=== PATIENT | female | born 1945 | race Caucasian/White ===

== ENCOUNTER 2016-07-03 12:01 | Emergency (ER) | payer MEDICARE, OTHER ==
--- NOTE | 2016-07-03 12:33 | ER Document Report ---
ED General - General Chief Complaint: General Weakness Stated Complaint: WEAKNESS Time Seen by Provider: 07/03/16 12:30 Mode of Arrival: Medic Information source: Patient Notes: This is a 70-year-old female with a history of syncope, back spasms and asthma who presents to the emergency room with weakness, back spasms and pain. Patient denies fever, chills, nausea vomiting. He shouldn't denies any photophobia. - HPI Onset: Just prior to arrival Onset/Duration: Sudden Quality of pain: Dull Severity: Moderate Pain Level: 2 Associated symptoms: denies: Chills, Fever, Nausea, Vomiting, Shortness of breath Exacerbated by: Denies Relieved by: Denies Similar symptoms previously: Yes Recently seen / treated by doctor: No - Related Data Allergies/Adverse Reactions: erythromycin base Allergy (Verified 07/03/16 12:34) Sulfa (Sulfonamide Antibiotics) Allergy (Verified 07/03/16 12:34) Past Medical History - General Information source: Patient - Social History Smoking Status: Never Smoker Cigarette use (# per day): No Chew tobacco use (# tins/day): No Frequency of alcohol use: None Drug Abuse: None Lives with: Family Family History: Reviewed & Not Pertinent Patient has suicidal ideation: No Patient has homicidal ideation: No - Past Medical History Cardiac Medical History: Reports: Other - Vasovagal syncope Pulmonary Medical History: Reports: Hx Asthma EENT Medical History: Reports: None Neurological Medical History: Reports: Other - Vasovagal syncope Endocrine Medical History: Reports: None Renal/ Medical History: Reports: None Malignancy Medical History: Reports: None GI Medical History: Reports: None Musculoskeltal Medical History: Reports None Skin Medical History: Reports None Psychiatric Medical History: Reports: Hx Anxiety Traumatic Medical History: Reports: None Infectious Medical History: Reports: None Past Surgical History: Reports: Other - Recent colonoscopy Review of Systems - Review of Systems Constitutional: denies: Chills, Fever EENT: No symptoms reported Cardiovascular: See HPI Respiratory: No symptoms reported Gastrointestinal: No symptoms reported Genitourinary: No symptoms reported Female Genitourinary: No symptoms reported Musculoskeletal: See HPI Skin: No symptoms reported Hematologic/Lymphatic: No symptoms reported Neurological/Psychological: Anxiety. denies: Confusion, Sensory change, Weakness, Gait changes, Loss of power, Paralysis, Seizure, Lost consciousness, Headaches, Speech impairment, Suicidal ideation, Tingling Physical Exam - Vital signs Vitals: Resp 16 07/03/16 12:05 Notes: Physical exam: GENERAL: 70-year-old female, alert and oriented 3, no acute distress HEAD: Atraumatic, normocephalic. EYES: Pupils equal round and reactive to light, extraocular movements intact, sclera anicteric, conjunctiva are normal. ENT: TMs normal, nares patent, oropharynx clear without exudates. Moist mucous membranes. NECK: Normal range of motion, supple without lymphadenopathy or JVD. LUNGS: Breath sounds clear to auscultation bilaterally and equal. No wheezes rales or rhonchi. HEART: Regular rate and rhythm without murmurs, rubs or gallops. ABDOMEN: Soft, normoactive bowel sounds. No tenderness to palpation. No guarding, no rebound. No masses appreciated. EXTREMITIES: Normal range of motion, no pitting or edema. No clubbing or cyanosis. NEUROLOGICAL: Patient denies headache. Cranial nerves II through XII grossly intact. Normal speech, moving all extremities, neck supple, no photophobia. PSYCH: Normal mood, normal affect. SKIN: Warm, Dry, normal turgor, no rashes or lesions noted. Course - Re-evaluation Re-evalutation: 07/03/16 16:19 Patient observed in the ER. IV fluids given. Patient tolerating by mouth. She feels good at this time. Her neck remained supple. She is without headache , photophobia or neck stiffness. She looks reasonably well. Her EKG and lab work looked good. She has had similar episodes to this in the past and has been diagnosed by 2 cardiologists with vasovagal syncope. The plan will be for follow-up as an outpatient. - Vital Signs Vital signs: Temp Pulse Resp BP Pulse Ox 98.7 F 18 138/59 H 100 07/03/16 12:51 07/03/16 14:01 07/03/16 14:01 07/03/16 14:01 - Laboratory Result Diagrams: 07/03/16 13:10 07/03/16 13:10 Laboratory results interpreted by me: 07/03/16 07/03/16 13:10 13:10 Seg Neutrophils % 84.9 H Lymphocytes % 8.4 L Glucose 114 H AST 48 H Creatine Kinase 251 H - EKG Interpretation by Me Rate: Normal Rhythm: NSR - EKG shows normal sinus rhythm with a ventricular rate of 64, no acute ST-T wave changes Discharge - Discharge Clinical Impression: near syncope Condition: Stable Disposition: HOME, SELF-CARE Additional Instructions: As we discussed, your EKG and labs look very good today. Your labs and neurologic exam do not suggest meningitis at all. I would rest, drink plenty of fluids. Continue current medicines. Follow-up with your doctor in the next few days: Bring a copy of today's EKG and labs with you when you go (I put a copy of his results in the discharge paperwork). Return to the emergency room for any chest pain or shortness of breath, fever or headache or any concerns he getting worse. Referrals: MEHRDAD MONDRAGON, [employer] [Primary Care Provider] - Follow up in 3-5 days
[2016-07-03 13:23] LABS: ABSOLUTE LYMPHOCYTES (AUTO) 0.6 10^3/uL (0.5-4.7); ABSOLUTE MONOCYTES (AUTO) 0.4 10^3/uL (0.1-1.4); ABSOLUTE NEUT (AUTO) 6.3 10^3/uL (1.7-8.2); BASOPHILS % (AUTO) 0.4 % (0-2); EOSINOPHILS % (AUTO) 0.2 % (0-6); HEMATOCRIT 39.4 % (36.0-47.0); HGB HCT DIFFERENCE -0.4; LYMPHOCYTES % (AUTO) 8.4 % (13-45); MEAN CORPUSCULAR HEMOGLOBIN 30.6 pg (27.0-33.4); MEAN CORPUSCULAR HGB CONC 32.9 g/dL (32.0-36.0); MEAN CORPUSCULAR VOLUME 93 fl (80-97); MONOCYTES % (AUTO) 6.1 % (3-13); RED BLOOD COUNT 4.24 10^6/uL (3.72-5.28); RED CELL DISTRIBUTION WIDTH 13.8 % (11.5-14.0); SEGMENTED NEUTROPHILS % (AUTO) 84.9 % (42-78); WHITE BLOOD COUNT 7.4 10^3/uL (4.0-10.5)
[2016-07-03 13:42] LABS: ALANINE AMINOTRANSFERASE 42 U/L (9-52); ALBUMIN 4.1 g/dL (3.5-5.0); ALKALINE PHOSPHATASE 59 U/L (38-126); ANION GAP 10 (5-19); ASPARTATE AMINO TRANSFERASE 48 U/L (14-36); BILIRUBIN,DIRECT 0.1 mg/dL (0.0-0.4); BILIRUBIN,TOTAL 1.1 mg/dL (0.2-1.3); BLOOD UREA NITROGEN 15 mg/dL (7-20); CALCIUM 9.8 mg/dL (8.4-10.2); CARBON DIOXIDE 25 mmol/L (22-30); CHLORIDE 105 mmol/L (98-107); CREATINE KINASE 251 U/L (30-135); CREATININE RESULT 0.91 mg/dL (0.52-1.25); GLUCOSE 114 mg/dL (75-110); POTASSIUM 4.2 mmol/L (3.6-5.0); SODIUM 140.3 mmol/L (137-145); TOTAL PROTEIN 6.8 g/dL (6.3-8.2)
--- NOTE | 2016-07-03 13:50 | EKG REPORT ---
SEVERITY:- NORMAL ECG - SINUS RHYTHM : Confirmed by: Cyndi Allison 03-Jul-2016 13:49:49
[2016-07-03 13:58] LABS: TROPONIN I < 0.012 ng/mL
[2016-07-03] MEDS ORDERED: NORMAL SALINE 1000 ML 1,000 ML IV PRN (15:05)
[2016-07-03 16:32] VITALS: BP 122/62
== END 2016-07-03 16:35 | disposition home or self-care (01) ==
LOC: ER 12:01
DX: R55 Syncope and collapse (principal); M62.830 Muscle spasm of back; R53.1 Weakness
CPT/HCPCS: 93005; 99285; 36415; 82553; 82550; 85025; 80053; 84484; 93010; J7030